=== PATIENT | male | born 1975 | race Caucasian/White ===

== ENCOUNTER 2016-11-29 21:20 | Emergency (ER) | payer OTHER ==
[~2016-11-29] VITALS: Ht 177.8 cm; Wt 88.5 kg
[2016-11-29 21:38] VITALS: Ht 177.8 cm; Wt 88.5 kg
[2016-11-29] MEDS ORDERED: LIDOCAINE 1% (MDV) 20 ML INJ SC ONE (22:30)
[2016-11-29] MEDS ORDERED: DIPHTH/TET/ACEL PERTUSS (ADULT) 0.5 ML VIAL IM* ONE (22:30)
[2016-11-30] MEDS ORDERED: AMOX1TAB10 PO (00:24)
[2016-11-30] MEDS ORDERED: IBUP-1542 PO (00:24)
[2016-11-30 00:40] VITALS: BP 140/85; PULSE 74; RESP 16; TEMP 97
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
== END 2016-11-30 00:46 | disposition home or self-care (01) ==
LOC: FTE 21:20
DX: S61.215A Laceration without foreign body of left ring finger without damage to nail, initial encounter (principal); S61.211A Laceration without foreign body of left index finger without damage to nail, initial encounter; W54.0XXA Bitten by dog, initial encounter; Y92.9 Unspecified place or not applicable; Z23 Encounter for immunization
CPT/HCPCS: 90471

== ENCOUNTER 2018-02-21 23:41 | Emergency (ER) | END 2018-02-22 03:36 | disposition home or self-care (01) ==